=== PATIENT | female | born 1950 | race African-American/Black ===

== ENCOUNTER 2018-05-15 23:15 | Inpatient (IN) | payer BC, MEDICAID ==
[~2018-05-15] VITALS: Ht 165.1 cm; Wt 73.1 kg
[2018-05-15] MEDS ORDERED: MAGNESIUM400 M1 PO (23:24)
[2018-05-15] MEDS ORDERED: IRBESARTAN300 MG ORAL (23:24)
[2018-05-15] MEDS ORDERED: METOPROLOL TART50 M1 ORAL (23:24)
[2018-05-15] MEDS ORDERED: NORVASC5 MG ORAL (23:24)
[2018-05-15] MEDS ORDERED: NEURONTIN300 MG ORAL (23:24)
[2018-05-15] MEDS ORDERED: CLOPIDOGREL75 MG ORAL (23:24)
[2018-05-15] MEDS ORDERED: CELLCEPT200 MG/1 M PO (23:24)
[2018-05-15] MEDS ORDERED: LIPITOR80 MG ORAL (23:24)
[2018-05-15] MEDS ORDERED: COLACE100 MG ORAL (23:24)
[2018-05-15] MEDS ORDERED: ASPIRIN-LOW81 MG ORAL (23:24)
[2018-05-15] MEDS ORDERED: SENNA8.6 M2 PO (23:24)
[2018-05-15] MEDS ORDERED: SALAGEN5 M1 PO (23:24)
[2018-05-15 23:33] VITALS: BP 157/92
[2018-05-15 23:52] LABS: HEMATOCRIT 27.2 % (37.0-47.0); HEMOGLOBIN 8.8 G/DL (12.0-16.0); MEAN CORPUSCULAR VOLUME 89 FL (80-99); PLATELET COUNT 273 K/UL (150-450); RED BLOOD COUNT 3.06 M/UL (4.20-5.40); RED CELL DISTRIBUTION WIDTH 13.4 % (11.6-14.8); WHITE BLOOD COUNT 10.6 K/UL (4.8-10.8)
[2018-05-16] VITALS (7 sets, daily range): BP systolic 113–147; BP diastolic 56–89
[2018-05-16] MEDS ORDERED: Pantoprazole Inj IVP ONE
[2018-05-16 00:02] LABS: INR 1.1 (0.9-1.1)
--- NOTE | 2018-05-16 00:09 | Emergency Room Report ---
History of Present Illness General Chief Complaint: General Complaint Source: Patient, EMS Present Illness HPI Patient 67 female with witnessed syncope lasting 1-2 min. Patient had recently been noted to have bloody stools. She had prior lupus history. She is Oriental orthodox. She denies hematemesis. Patient is on Plavix and Aspirin. Allergies: Coded Allergies: CODEINE (Verified Allergy, Unknown, DISORIENTED, 06/01/11) IBUPROFEN (Verified Allergy, Unknown, DISORIENTED, 06/01/11) LEVOFLOXACIN (Verified Allergy, Unknown, DISORIENTED, 06/01/11) Patient History Past Medical History: see triage record Reviewed Nursing Documentation: PMH: Agreed; PSxH: Agreed Nursing Documentation-PMH Past Medical History: No History, Except For Hx Hypertension: Yes Hx Cerebrovascular Accident: Yes Review of Systems All Other Systems: negative except mentioned in HPI Physical Exam Vital Signs Date Time Temp Pulse Resp B/P (MAP) Pulse Ox O2 Delivery O2 Flow Rate FiO2 05/15/18 23:15 98.1 72 20 157/92 98 Room Air 98.1 Sp02 EP Interpretation: reviewed, normal General Appearance: normal inspection, well appearing, no apparent distress, alert, GCS 15, non-toxic Head: atraumatic ENT: normal ENT inspection, hearing grossly normal, normal voice Neck: normal inspection, full range of motion, supple, no bony tend Respiratory: normal inspection, lungs clear, normal breath sounds, no respiratory distress, no retraction, no wheezing Cardiovascular #1: regular rate, rhythm, no edema Gastrointestinal: normal inspection, normal bowel sounds, non tender, soft, no guarding, no hernia Genitourinary: no CVA tenderness Musculoskeletal: normal inspection, back normal, normal range of motion Neurologic: normal inspection, alert, responsive, speech normal, motor weakness - right upper extremities Psychiatric: normal inspection, judgement/insight normal, mood/affect normal Skin: normal inspection, normal color, no rash Medical Decision Making Diagnostic Impression: Primary Impression: Syncope Additional Impressions: GI bleed Platelet inhibition due to Plavix CVA, old, hemiparesis ER Course Patient presented after witnessed syncopal episode. Patient noted have recent bleeding episode. The differential diagnosis included but was not limited to ulcer, diverticulosis, aortic aneurysm, arteriovenous formation, coagulopathy, cancer among others. Because of complexity of patient's case laboratory testing and imaging studies were ordered. Laboratory testing was notable for anemia. Patient was noted to be Gnosticism. The patient was given IV Protonix. Patient started on IV fluids. Dr. Haseeb Owen was contacted for Dr. Mcdonnell due to primary physician coverage. Labs Test 05/15/18 23:43 White Blood Count 10.6 K/UL (4.8-10.8) Red Blood Count 3.06 M/UL (4.20-5.40) Hemoglobin 8.8 G/DL (12.0-16.0) Hematocrit 27.2 % (37.0-47.0) Mean Corpuscular Volume 89 FL (80-99) Mean Corpuscular Hemoglobin 28.9 PG (27.0-31.0) Mean Corpuscular Hemoglobin Concent 32.5 G/DL (32.0-36.0) Red Cell Distribution Width 13.4 % (11.6-14.8) Platelet Count 273 K/UL (150-450) Mean Platelet Volume 6.9 FL (6.5-10.1) Neutrophils (%) (Auto) % (45.0-75.0) Lymphocytes (%) (Auto) % (20.0-45.0) Monocytes (%) (Auto) % (1.0-10.0) Eosinophils (%) (Auto) % (0.0-3.0) Basophils (%) (Auto) % (0.0-2.0) Prothrombin Time 11.2 SEC (9.30-11.50) Prothromb Time International Ratio 1.1 (0.9-1.1) Activated Partial Thromboplast Time 34 SEC (23-33) Troponin I 0.001 ng/mL (0.000-0.056) EKG Diagnostic Results Rate: normal Rhythm: NSR ST Segments: no acute changes Last Vital Signs Date Time Temp Pulse Resp B/P (MAP) Pulse Ox O2 Delivery O2 Flow Rate FiO2 05/15/18 23:33 98.1 20 157/92 98 Room Air 98.1 05/15/18 23:15 72 Status: improved Disposition: ADMITTED INPATIENT Condition: Serious Referrals: Monroe Jimenez MD (PCP) Genaro Sousa MD May 16, 2018 00:09
[2018-05-16] MEDS ORDERED: Sodium Chloride 500ML 500 ML IV ONE (00:15)
[2018-05-16 00:33] LABS: ANION GAP 12 mmol/L (5-15); BLOOD UREA NITROGEN 23 mg/dL (7-18); CALCIUM 8.7 MG/DL (8.5-10.1); CARBON DIOXIDE 23 MMOL/L (21-32); CHLORIDE 105 MMOL/L (98-107); CREATININE 0.8 MG/DL (0.55-1.30); SODIUM 139 MMOL/L (136-145)
[2018-05-16 00:37] LABS: ALANINE AMINOTRANSFERASE 26 U/L (12-78); ALBUMIN 2.5 G/DL (3.4-5.0); ALBUMIN/GLOBULIN RATIO 0.4 (1.0-2.7); ALKALINE PHOSPHATASE 59 U/L (46-116); ASPARTATE AMINO TRANSFERASE 27 U/L (15-37); BILIRUBIN,TOTAL 0.2 MG/DL (0.2-1.0)
[2018-05-16] MEDS ORDERED: LIPITOR40 MG ORAL (03:13)
[2018-05-16 05:30] LABS: BASOPHILS % (AUTO) 0.3 % (0.0-2.0); EOSINOPHILS % (AUTO) 0.5 % (0.0-3.0); HEMATOCRIT 27.1 % (37.0-47.0); HEMOGLOBIN 8.6 G/DL (12.0-16.0); LYMPHOCYTES % (AUTO) 10.2 % (20.0-45.0); MEAN CORPUSCULAR VOLUME 89 FL (80-99); PLATELET COUNT 256 K/UL (150-450); RED BLOOD COUNT 3.04 M/UL (4.20-5.40); RED CELL DISTRIBUTION WIDTH 13.5 % (11.6-14.8); WHITE BLOOD COUNT 7.8 K/UL (4.8-10.8)
--- NOTE | 2018-05-16 08:16 | Consultation ---
Consult Note Consult Note Hematology Consultation DOS: 05/16/2018 NEHA MD: Owen RFC: Anemia eval HPI 67 female with hx stroke, hl, htn, witnessed syncope lasting 1-2 min. Patient had recently been noted to have bloody stools. She had prior lupus history. She is Taoist. She denies hematemesis. Patient is on Plavix and Aspirin. Apparently was seen before in 2010, with a kidney mass but do not have prior imaging or notes in the emr. Anemia panel reviewed nothing yet has been ordered. Heme service consulted. Allergies: CODEINE (Verified Allergy, Unknown, DISORIENTED, 06/01/11) IBUPROFEN (Verified Allergy, Unknown, DISORIENTED, 06/01/11) LEVOFLOXACIN (Verified Allergy, Unknown, DISORIENTED, 06/01/11) Patient History Past Medical History: see triage record Reviewed Nursing Documentation: PMH: Agreed; PSxH: Agreed Past Medical History: No History, Except For Hx Hypertension: Yes Hx Cerebrovascular Accident: Yes ER ROS - General Review of Systems All Other Systems: negative except mentioned in HPI 12 point ros otherwise negative ER Physical Exam - General Physical Exam Last 24 Hour Vital Signs Date Time Temp Pulse Resp B/P (MAP) Pulse Ox O2 Delivery O2 Flow Rate FiO2 05/16/18 04:00 97.7 83 20 123/81 (95) 100 97.7 05/16/18 04:00 Room Air 05/16/18 04:00 82 05/16/18 02:00 Room Air 05/16/18 01:23 83 05/16/18 01:20 98.5 84 20 147/73 (97) 98 98.5 05/16/18 01:05 98.0 68 18 141/89 98 Room Air 98.0 05/16/18 01:05 97.9 63 18 133/67 100 05/15/18 23:33 98.1 20 157/92 98 Room Air 98.1 05/15/18 23:15 98.1 72 20 157/92 98 Room Air 98.1 Sp02 EP Interpretation: reviewed, normal General Appearance: normal inspection, well appearing, nad Head: atraumatic ENT: normal ENT inspection, hearing grossly normal, normal voice Neck: normal inspection, full range of motion, supple, no bony tend Respiratory: normal inspection, lungs clear Cardiovascular: regular rate, rhythm, no edema Gastrointestinal: normal inspection, normal bowel sounds Genitourinary: no CVA tenderness Musculoskeletal: normal inspection, back normal, normal range of motion Neurologic: normal inspection, motor weakness - right upper extremities Psychiatric: normal inspection Laboratory Tests Test 05/15/18 23:43 05/16/18 05:04 White Blood Count 10.6 K/UL (4.8-10.8) 7.8 K/UL (4.8-10.8) Red Blood Count 3.06 M/UL (4.20-5.40) L 3.04 M/UL (4.20-5.40) L Hemoglobin 8.8 G/DL (12.0-16.0) L 8.6 G/DL (12.0-16.0) L Hematocrit 27.2 % (37.0-47.0) L 27.1 % (37.0-47.0) L Mean Corpuscular Volume 89 FL (80-99) 89 FL (80-99) Mean Corpuscular Hemoglobin 28.9 PG (27.0-31.0) 28.4 PG (27.0-31.0) Mean Corpuscular Hemoglobin Concent 32.5 G/DL (32.0-36.0) 31.8 G/DL (32.0-36.0) L Red Cell Distribution Width 13.4 % (11.6-14.8) 13.5 % (11.6-14.8) Platelet Count 273 K/UL (150-450) 256 K/UL (150-450) Mean Platelet Volume 6.9 FL (6.5-10.1) 6.3 FL (6.5-10.1) L Neutrophils (%) (Auto) % (45.0-75.0) 83.0 % (45.0-75.0) H Lymphocytes (%) (Auto) % (20.0-45.0) 10.2 % (20.0-45.0) L Monocytes (%) (Auto) % (1.0-10.0) 6.0 % (1.0-10.0) Eosinophils (%) (Auto) % (0.0-3.0) 0.5 % (0.0-3.0) Basophils (%) (Auto) % (0.0-2.0) 0.3 % (0.0-2.0) Prothrombin Time 11.2 SEC (9.30-11.50) Prothromb Time International Ratio 1.1 (0.9-1.1) Activated Partial Thromboplast Time 34 SEC (23-33) H Sodium Level 139 MMOL/L (136-145) Potassium Level 4.0 MMOL/L (3.5-5.1) Chloride Level 105 MMOL/L (98-107) Carbon Dioxide Level 23 MMOL/L (21-32) Anion Gap 12 mmol/L (5-15) Blood Urea Nitrogen 23 mg/dL (7-18) H Creatinine 0.8 MG/DL (0.55-1.30) Estimat Glomerular Filtration Rate > 60 mL/min (>60) Glucose Level 131 MG/DL (74-106) H Calcium Level 8.7 MG/DL (8.5-10.1) Total Bilirubin 0.2 MG/DL (0.2-1.0) Aspartate Amino Transf (AST/SGOT) 27 U/L (15-37) Alanine Aminotransferase (ALT/SGPT) 26 U/L (12-78) Alkaline Phosphatase 59 U/L (46-116) Troponin I 0.001 ng/mL (0.000-0.056) Total Protein 8.1 G/DL (6.4-8.2) Albumin 2.5 G/DL (3.4-5.0) L Globulin 5.6 g/dL Albumin/Globulin Ratio 0.4 (1.0-2.7) L Assessment and Recs: # Anemia etiology yet unknown, normocytic, no evidence of hemolysis noted --> Sabianism, therefore will not accept transfusions --> have ordered for tsh, ferritin, tibc, esr, crp, retic count, consider further w/u as needed --> monitor if any fluids are given, hgb may decrease due to hemodilutional status --> closely monitor for improvement in next several days --> if hgb downtrends, consider to hold off on asa/palvix as will decrease function of platelets # Anemia of gi bleed - w/u as needed, consider occult blood --> gi eval if continues to persist --> protonix has been started # Syncope is related most likely due to anemia versus cardiac cause v others # CVA, old, hemiparesis Greatly appreciate consultation! Buddy Hernandez MD May 16, 2018 08:16
[2018-05-16] MEDS ORDERED: Irbesartan 150mg tablet ORAL SCH (09:00)
[2018-05-16] MEDS ORDERED: Mycophenolate 250mg cap ORAL SCH (09:00)
[2018-05-16] MEDS ORDERED: Metoprolol Tartrate 50mg tab ORAL SCH (09:00)
[2018-05-16 10:06] LABS: LACTATE DEHYDROGENASE 181 U/L (81-234)
[2018-05-16 10:33] LABS: % IRON SATURATION 30 % (15-50); IRON 41 ug/dL (50-175); TOTAL IRON BINDING CAPACITY 135 ug/dL (250-450)
[2018-05-16 10:37] LABS: FERRITIN 1283 NG/ML (8-388)
--- NOTE | 2018-05-16 10:39 | Diagnostic Imaging Report ---
Indication: Altered level of consciousness Technique: Contiguous 5 mm thick transaxial imaging of the head obtained in a Siemens Sensation [address] scanner. Soft tissue and bone windows generated. Automatic Exposure Control was utilized. Total Dose length Product (DLP): 1393.[address] Dose Index Volume (CTDIvol): 70.38 mGy Comparison: none Findings: Small cystic foci demonstrated within the left osullivan radiata, right basal ganglia and left midbrain bilateral thalami. Findings consistent with old lacunar infarcts. There is mild prominence of the ventricles, basal cisterns, and cerebral sulci consistent with atrophy. Mild, nonspecific, white matter hypoattenuation is noted throughout the brain consistent with chronic small vessel disease. There is no midline shift, edema, acute hemorrhage, mass effect, or abnormal extra-axial fluid collections. Bones and extra osseous soft tissues are unremarkable. Impression: No acute intracranial bleed, mass effect or edema. Multiple old lacunar infarcts Mild atrophy of the brain. Nonspecific white matter hypoattenuation probably due to chronic small vessel disease. The CT scanner at [facility] is accredited by the [employer] and the scans are performed using dose optimization techniques as appropriate to a performed exam including Automatic Exposure control.
--- NOTE | 2018-05-16 12:00 | History and Physical Report ---
DATE OF ADMISSION: 05/16/2018 REASON FOR ADMISSION: Bright red blood through rectum. HISTORY OF PRESENT ILLNESS: The patient is a 67-year-old female, who presented to the emergency room after having bright red bloody stool. She was not feeling well and got very lightheaded and almost passed out. She is a Pentecostalism. She denies any hemoptysis. She had been on aspirin and Plavix. She denies any shortness of breath, nausea, vomiting, or diarrhea. ALLERGIES: Codeine, ibuprofen. PAST MEDICAL HISTORY: 1. Hypertension. 2. Hyperlipidemia. 3. Neuropathy. 4. Rheumatological disease. PAST SURGICAL HISTORY: Noncontributory. FAMILY HISTORY: Positive for hypertension. REVIEW OF SYSTEMS: NEUROLOGIC: The patient was lightheaded and almost passed out. CARDIOVASCULAR: No chest pain, palpitations, or angina. PULMONARY: No difficulty breathing, productive cough, or sputum. GASTROINTESTINAL/GENITOURINARY: No changes in urinary or bowel habits. No nausea, vomiting, or diarrhea. ENDOCRINOLOGY: No night sweats, fevers, or chills. LABORATORY DATA: Laboratories dated May 15, 2018, sodium 139, potassium 4.2, creatinine 0.8. Hemoglobin 8.8, platelet count 273, white cell count 10.6. PHYSICAL EXAMINATION: VITAL SIGNS: Blood pressure 120/70, respiratory rate 20, pulse 88, temperature 98.2, and 100% oxygen saturation on room air. GENERAL: The patient awake, alert, not otherwise in distress. HEENT: Extraocular muscles intact. No lymphadenopathy noted. CARDIOVASCULAR: S1, S2. No rubs or gallops. PULMONARY: Clear to auscultation bilaterally. No rales, rhonchi or wheezes. ABDOMEN: Nondistended and nontender. EXTREMITIES: No edema noted. ASSESSMENT AND PLAN: 1. Bright red blood through rectum. At this time, aspirin and Plavix were temporarily held. Awaiting GI evaluation and further recommendations. 2. Anemia. Hemoglobin 8.6. Aspirin and Plavix have been held. Hematology is currently evaluating the patient to determine whether or not to continue aspirin and Plavix. 3. Presyncopal episode with lightheadedness while being on anticoagulation at this time. We will order CT of the head to rule out any subdural bleed. 4. DVT prophylaxis with SCDs. 5. Hypertension, stable. Adjust medication as deemed appropriate. Haseeb Owen MD DR: EZRA JOB#: [id number] CC: [email or web address]
--- NOTE | 2018-05-16 14:19 | GI Initial Consult Note ---
History of Present Illness General Date patient seen: May 16, 2018 Time patient seen: 14:18 Reason for Hospitalization: General Complaint Referring physician: EMMANUEL GODOY Reason for Consultation: GI BLEED Present Illness HPI Patient 67 female with witnessed syncope lasting 1-2 min. Patient had recently been noted to have bloody stools. She had prior lupus history. She is Anabaptism. She denies hematemesis. Patient is on Plavix and Aspirin. GI consulted for GI bleed. Pt seen, awake A&Ox4 NAD had c/o of dark red bloody stools x1 day. States it has subsided/resolved over night. Has history of CVA , has been on plavix and aspirin. Per patient, states she had endoscopy/ colonoscopy this year at [facility], but unsure of the findings. Labs reviewed show anemia. Home Meds Reported Medications Atorvastatin Calcium* (LIPITOR*) 40 Mg Tablet, 40 MG ORAL DAILY, TAB 05/16/18 Sennosides (SENNA) 8.6 Mg Tablet, 8.6 MG PO HS, TAB 05/15/18 Pilocarpine HCl (Salagen) 5 Mg Tablet, 5 MG PO TID, TAB 05/15/18 Metoprolol Tartrate* (METOPROLOL TARTRATE*) 50 Mg Tablet, 50 MG ORAL EVERY 12 HOURS, TAB 05/15/18 Magnesium Oxide (MAGNESIUM) 400 Mg Capsule, 400 MG PO BID, CAP 05/15/18 Irbesartan (IRBESARTAN) 300 Mg Tablet, 300 MG ORAL DAILY, TAB 05/15/18 Gabapentin (Neurontin) 300 Mg Capsule, 300 MG ORAL FOUR TIMES A DAY, CAP 0 Refills 05/15/18 Docusate Sodium* (COLACE*) 100 Mg Capsule, 100 MG ORAL TWICE A DAY, CAP 05/15/18 Clopidogrel* (CLOPIDOGREL*) 75 Mg Tablet, 75 MG ORAL DAILY, TAB 05/15/18 Mycophenolate Mofetil (CELLCEPT) 200 Mg/1 Ml Susp.recon, 250 MG PO BID, ML 05/15/18 Aspirin (Aspirin EC) 81 Mg Tablet.dr, 81 MG ORAL DAILY, TAB 05/15/18 Amlodipine Besylate (Norvasc) 5 Mg Tablet, 5 MG ORAL DAILY, TAB 05/15/18 Med list reviewed/reconciled: Yes Allergies: Coded Allergies: CODEINE (Verified Allergy, Unknown, DISORIENTED, 06/01/11) IBUPROFEN (Verified Allergy, Unknown, DISORIENTED, 06/01/11) LEVOFLOXACIN (Verified Allergy, Unknown, DISORIENTED, 06/01/11) Patient History History Provided By: Patient, Medical Record PMH Narrative Past Medical History: see triage record Reviewed Nursing Documentation: PMH: Agreed; PSxH: Agreed Nursing Documentation-PMH Past Medical History: No History, Except For Hx Hypertension: Yes Hx Cerebrovascular Accident: Yes Social History: Denies: smoking, alcohol use, drug use, other Review of Systems All Other Systems: negative except mentioned in HPI Physical Exam Vital Signs Date Time Temp Pulse Resp B/P (MAP) Pulse Ox O2 Delivery O2 Flow Rate FiO2 05/15/18 23:15 98.1 72 20 157/92 98 Room Air 98.1 Sp02 EP Interpretation: reviewed, normal Labs Laboratory Tests Test 05/15/18 23:43 05/16/18 05:04 05/16/18 08:50 White Blood Count 10.6 K/UL (4.8-10.8) 7.8 K/UL (4.8-10.8) Red Blood Count 3.06 M/UL (4.20-5.40) L 3.04 M/UL (4.20-5.40) L Hemoglobin 8.8 G/DL (12.0-16.0) L 8.6 G/DL (12.0-16.0) L Hematocrit 27.2 % (37.0-47.0) L 27.1 % (37.0-47.0) L Mean Corpuscular Volume 89 FL (80-99) 89 FL (80-99) Mean Corpuscular Hemoglobin 28.9 PG (27.0-31.0) 28.4 PG (27.0-31.0) Mean Corpuscular Hemoglobin Concent 32.5 G/DL (32.0-36.0) 31.8 G/DL (32.0-36.0) L Red Cell Distribution Width 13.4 % (11.6-14.8) 13.5 % (11.6-14.8) Platelet Count 273 K/UL (150-450) 256 K/UL (150-450) Mean Platelet Volume 6.9 FL (6.5-10.1) 6.3 FL (6.5-10.1) L Neutrophils (%) (Auto) % (45.0-75.0) 83.0 % (45.0-75.0) H Lymphocytes (%) (Auto) % (20.0-45.0) 10.2 % (20.0-45.0) L Monocytes (%) (Auto) % (1.0-10.0) 6.0 % (1.0-10.0) Eosinophils (%) (Auto) % (0.0-3.0) 0.5 % (0.0-3.0) Basophils (%) (Auto) % (0.0-2.0) 0.3 % (0.0-2.0) Prothrombin Time 11.2 SEC (9.30-11.50) Prothromb Time International Ratio 1.1 (0.9-1.1) Activated Partial Thromboplast Time 34 SEC (23-33) H Sodium Level 139 MMOL/L (136-145) Potassium Level 4.0 MMOL/L (3.5-5.1) Chloride Level 105 MMOL/L (98-107) Carbon Dioxide Level 23 MMOL/L (21-32) Anion Gap 12 mmol/L (5-15) Blood Urea Nitrogen 23 mg/dL (7-18) H Creatinine 0.8 MG/DL (0.55-1.30) Estimat Glomerular Filtration Rate > 60 mL/min (>60) Glucose Level 131 MG/DL (74-106) H Calcium Level 8.7 MG/DL (8.5-10.1) Total Bilirubin 0.2 MG/DL (0.2-1.0) Aspartate Amino Transf (AST/SGOT) 27 U/L (15-37) Alanine Aminotransferase (ALT/SGPT) 26 U/L (12-78) Alkaline Phosphatase 59 U/L (46-116) Troponin I 0.001 ng/mL (0.000-0.056) Total Protein 8.1 G/DL (6.4-8.2) Albumin 2.5 G/DL (3.4-5.0) L Globulin 5.6 g/dL Albumin/Globulin Ratio 0.4 (1.0-2.7) L Differential Total Cells Counted 100 Neutrophils % (Manual) 84 % (45-75) H Lymphocytes % (Manual) 9 % (20-45) L Monocytes % (Manual) 5 % (1-10) Eosinophils % (Manual) 1 % (0-3) Basophils % (Manual) 1 % (0-2) Band Neutrophils 0 % (0-8) Platelet Estimate Adequate Platelet Morphology Normal Hypochromasia 2+ Anisocytosis 1+ Reticulocyte Count 0.2 % (0.0-2.0) Fibrinogen 437 mg/dL (200-400) H Iron Level 41 ug/dL (50-175) L Total Iron Binding Capacity 135 ug/dL (250-450) L Percent Iron Saturation 30 % (15-50) Unsaturated Iron Binding 94 ug/dL (112-346) L Ferritin 1283 NG/ML (8-388) H Lactate Dehydrogenase 181 U/L (81-234) Folate 25.2 NG/ML (8.6-58.9) Thyroid Stimulating Hormone (TSH) 1.313 uiU/mL (0.358-3.740) General Appearance: well appearing, no apparent distress, alert Head: normocephalic EENT: PERRL/EOMI, normal ENT inspection Neck: supple Respiratory: normal breath sounds, no respiratory distress Cardiovascular: normal rate Gastrointestinal: normal inspection, non tender, soft, normal bowel sounds, non -distended Rectal: deferred Genitourinary: no CVA tenderness Musculoskeletal: normal inspection, back normal Neurologic: normal inspection, alert, oriented x3, responsive Psychiatric: normal inspection, judgement/insight normal, memory normal Skin: normal inspection, normal color, no rash, warm/dry, palpation normal, well hydrated Lymphatic: normal inspection, no adenopathy Current Medications Current Medications Medications (Trade) Dose Ordered Sig/Jose Roberto Route PRN Reason Start Time Stop Time Status Last Admin Dose Admin Acetaminophen (Tylenol) 650 mg Q4H PRN ORAL Mild Pain (Pain Scale 1-3) 05/16/18 10:00 06/15/18 09:59 Amlodipine Besylate (Norvasc) 5 mg DAILY ORAL 05/17/18 09:00 06/15/18 08:59 Atorvastatin Calcium (Lipitor) 40 mg BEDTIME ORAL 05/16/18 21:00 06/15/18 20:59 Bisacodyl (Dulcolax) 10 mg ONCE ONCE ORAL 05/16/18 16:00 05/16/18 16:01 UNV Dextrose (Dextrose 50%) 25 ml Q30M PRN IV Hypoglycemia 05/16/18 10:00 06/15/18 00:29 Dextrose (Dextrose 50%) 50 ml Q30M PRN IV Hypoglycemia 05/16/18 10:00 06/15/18 00:29 Famotidine (Pepcid) 40 mg DAILY ORAL 05/17/18 09:00 06/15/18 08:59 Gabapentin (Neurontin) 300 mg THREE TIMES A DAY ORAL 05/16/18 13:00 06/15/18 12:59 05/16/18 12:23 Irbesartan (Avapro) 150 mg BID ORAL 05/16/18 18:00 06/15/18 08:59 Magnesium Citrate (Citrate Of Magnesia) 300 ml ONCE ONCE ORAL 05/16/18 16:00 05/16/18 16:01 UNV Metoprolol Tartrate (Lopressor) 50 mg Q12HR ORAL 05/16/18 21:00 06/15/18 08:59 Mycophenolate Mofetil (Cellcept) 250 mg TWICE A DAY ORAL 05/16/18 18:00 06/15/18 08:59 Ondansetron HCl (Zofran) 4 mg Q6H PRN IVP Nausea & Vomiting 05/16/18 10:00 06/15/18 09:59 Polyethylene Glycol (Miralax) 238 gm ONCE ONCE ORAL 05/16/18 16:00 05/16/18 16:01 UNV Sodium Chloride 1,000 ml @ 75 mls/hr [id number] 05/16/18 09:45 06/15/18 01:29 05/16/18 10:02 Sodium Phosphate (Fleet's Sodium Phosl Enema) 133 ml ONCE ONCE RECTAL 05/16/18 23:00 05/16/18 23:01 UNV GI: Plan Problems: (1) Anemia (2) CVA, old, hemiparesis (3) Platelet inhibition due to Plavix (4) GI bleed (5) Syncope Plan EGD/colonoscopy scheduled for tomorrow. - CLD, NPO @ [facility]. - hold all blood thinners anemia work up OB stool r/o GI bleed monitor H&H, prn transfusions bowel regime ppi fu labs will follow with additional recs post procedure OT/PT/ST Discussed with Dr. Sepulveda. Thank you for this patient referral, we will follow. The patient was seen and examined at bedside and all new and available data was reviewed in the patients chart. I agree with the above findings, impression and plan. (Patient seen earlier today. Signature stamp does not reflect patient encounter time.). - MD Shira HeadD[facility] [employer]LECT[employer] MAINTENANCE MECH[employer]IC May 16, 2018 14:19
[2018-05-16] MEDS ORDERED: Magnesium Citrate Liq Btl ORAL SCH (16:00)
[2018-05-16] MEDS ORDERED: Bisacodyl EC 5mg tab ORAL SCH (16:00)
[2018-05-16] MEDS ORDERED: Polyethylene Glycol 238gm bottle ORAL SCH (16:00)
[2018-05-16] MEDS: Irbesartan 150mg tablet ORAL SCH (17:06)
[2018-05-16] MEDS: Mycophenolate 250mg cap ORAL SCH (17:06)
--- NOTE | 2018-05-16 19:35 | Cardiology Report ---
APPROVED REPORT EKG Measurement Heart [id number] NM [id number] Normal sinus rhythm Nonspecific T wave abnormality Abnormal ECG
[2018-05-16] MEDS ORDERED: Atorvastatin 20mg tab ORAL SCH ×2 (21:00)
[2018-05-16] MEDS: Metoprolol Tartrate 50mg tab ORAL SCH (21:29)
[2018-05-16] MEDS ORDERED: Fleet's Enema 133ml RECTAL ONE (23:00)
[2018-05-17] VITALS (10 sets, daily range): BP systolic 132–153; BP diastolic 60–77
[2018-05-17 07:28] LABS: ANION GAP 7 mmol/L (5-15); BLOOD UREA NITROGEN 8 mg/dL (7-18); CALCIUM 8.6 MG/DL (8.5-10.1); CARBON DIOXIDE 27 MMOL/L (21-32); CHLORIDE 108 MMOL/L (98-107); CREATININE 0.6 MG/DL (0.55-1.30); POTASSIUM 3.4 MMOL/L (3.5-5.1); SODIUM 142 MMOL/L (136-145)
[2018-05-17 07:38] LABS: BASOPHILS % (AUTO) 0.4 % (0.0-2.0); EOSINOPHILS % (AUTO) 3.4 % (0.0-3.0); HEMATOCRIT 27.5 % (37.0-47.0); HEMOGLOBIN 8.7 G/DL (12.0-16.0); LYMPHOCYTES % (AUTO) 12.4 % (20.0-45.0); MEAN CORPUSCULAR VOLUME 89 FL (80-99); MONOCYTES % (AUTO) 8.5 % (1.0-10.0); NEUTROPHILS % (AUTO) 75.2 % (45.0-75.0); PLATELET COUNT 271 K/UL (150-450); RED BLOOD COUNT 3.08 M/UL (4.20-5.40); RED CELL DISTRIBUTION WIDTH 13.5 % (11.6-14.8); WHITE BLOOD COUNT 5.6 K/UL (4.8-10.8)
[2018-05-17 07:52] LABS: INR 1.1 (0.9-1.1)
[2018-05-17] MEDS: Irbesartan 150mg tablet ORAL SCH ×2 (08:12→17:43)
[2018-05-17] MEDS: Mycophenolate 250mg cap ORAL SCH ×2 (08:13→17:43)
[2018-05-17] MEDS: Metoprolol Tartrate 50mg tab ORAL SCH (08:13)
[2018-05-17] MEDS ORDERED: fentaNYL 100 mcg/2 mL IV ONE (10:09)
[2018-05-17] MEDS ORDERED: Midazolam 2mg/2ml Inj ONE (10:09)
--- NOTE | 2018-05-17 10:23 | Nephrology Progress Note ---
Assessment/Plan Assessment/Plan A/P 1) GI Bleed/Hematochezia - Hgb stable. ASA and Plavix on hold until cleared by GI - EGD and Colonoscopy today - Anemia w/u per Heme - plan on DC today if cleared by GI 2) Presyncopal Episode with episode of Hematochezia- likely vasovagal - CT Head negative 3) HTN- stable 4) DVT prophylaxsis with ambulation and SCDs Subjective Date patient seen: May 17, 2018 Time patient seen: 10:21 ROS Limited/Unobtainable: No Allergies: Coded Allergies: CODEINE (Verified Allergy, Unknown, DISORIENTED, 06/01/11) IBUPROFEN (Verified Allergy, Unknown, DISORIENTED, 06/01/11) LEVOFLOXACIN (Verified Allergy, Unknown, DISORIENTED, 06/01/11) All Systems: reviewed and negative except above Subjective Patient feeling well. EGD/Colonoscopy today Objective Last 24 Hour Vital Signs Date Time Temp Pulse Resp B/P (MAP) Pulse Ox O2 Delivery O2 Flow Rate FiO2 05/17/18 08:16 67 134/71 05/17/18 08:13 67 134/71 05/17/18 08:12 134/71 05/17/18 08:00 68 05/17/18 08:00 98.1 67 20 134/71 (92) 96 98.1 05/17/18 04:00 97.3 69 20 132/72 (92) 97 97.3 05/17/18 04:00 68 05/17/18 00:00 97.5 71 20 153/75 (101) 99 97.5 05/17/18 00:00 71 05/16/18 21:29 74 142/74 05/16/18 21:00 Room Air 05/16/18 20:00 98.1 74 20 142/74 (96) 98 98.1 05/16/18 20:00 77 05/16/18 17:06 138/76 05/16/18 16:00 75 05/16/18 16:00 98.1 75 18 138/76 (96) 99 98.1 05/16/18 12:00 98.3 78 18 113/56 (75) 98 98.3 05/16/18 12:00 75 Intake and Output 05/16/18 05/17/18 19:00 07:00 Intake Total 1475 ml 930 ml Output Total 300 ml 3 ml Balance 1175 ml 927 ml Intake Oral 800 ml 120 ml IV Total 675 ml 810 ml Output Urine Total 300 ml Stool Total 3 ml # Voids 5 # Bowel Movements 5 Laboratory Tests 05/16/18 19:30: Stool Occult Blood [Pending] 05/17/18 06:35: White Blood Count 5.6, Red Blood Count 3.08L, Hemoglobin 8.7L, Hematocrit 27.5L , Mean Corpuscular Volume 89, Mean Corpuscular Hemoglobin 28.4, Mean Corpuscular Hemoglobin Concent 31.9L, Red Cell Distribution Width 13.5, Platelet Count 271, Mean Platelet Volume 6.5, Neutrophils (%) (Auto) 75.2H, Lymphocytes (%) (Auto) 12.4L, Monocytes (%) (Auto) 8.5, Eosinophils (%) (Auto) 3.4H, Basophils (%) (Auto) 0.4, Prothrombin Time 11.3, Prothromb Time International Ratio 1.1, Activated Partial Thromboplast Time 31, Sodium Level 142, Potassium Level 3.4L, Chloride Level 108H, Carbon Dioxide Level 27, Anion Gap 7, Blood Urea Nitrogen 8, Creatinine 0.6, Estimat Glomerular Filtration Rate > 60, Glucose Level 79, Calcium Level 8.6 Height (Feet): 5 Height (Inches): 5.00 Weight (Pounds): 161 General Appearance: WD/WN, no apparent distress EENT: normal ENT inspection Neck: normal alignment, supple Cardiovascular: normal rate, regular rhythm Respiratory/Chest: lungs clear, normal breath sounds Abdomen: non tender, soft Edema: no edema noted Arm (L), no edema noted Arm (R), no edema noted Leg (L), no edema noted Leg (R), no edema noted Pedal (L), no edema noted Pedal (R), no edema noted Generalized Haseeb Owen MD May 17, 2018 10:23
[2018-05-17] MEDS ORDERED: NS 500ML IVPB ONE (10:35)
--- NOTE | 2018-05-17 10:37 | Pre-Procedure Note/Attestation ---
Pre-Procedure Note/Attestation Complete Prior to Procedure Planned Procedure: not applicable Procedure Narrative: esophagogastroduodenoscopy and colonoscopy Indications for Procedure Pre-Operative Diagnosis: gib Attestation I attest that I discussed the nature of the procedure; its benefits; risks and complications; and alternatives (and the risks and benefits of such alternatives ), prior to the procedure, with the patient (or the patient's legal registration representative). I attest that, if there was a reasonable possibility of needing a blood transfusion, the patient (or the patient's legal registration representative) was given the [facility] standardized written summary, pursuant to the Justin Mykel Blood Safety Act ([place] Health and Safety Code # 1645, as amended). I attest that I re-evaluated the patient just prior to the surgery and that there has been no change in the patient's H&P, except as documented below: Calixto Sepulveda MD May 17, 2018 10:37
--- NOTE | 2018-05-17 10:40 | Anethesia Preoperative Eval ---
Anesthesia Pre-op PMH/ROS General Date of Evaluation: May 17, 2018 Time of Evaluation: 10:27 Anesthesiologist: Danny ASA Score: ASA 3 Mallampati Score Class I : Soft palate, uvula, fauces, pillars visible Class II: Soft palate, uvula, fauces visible Class III: Soft palate, base of uvula visible Class IV: Only hard plate visible Mallampati Classification: Class II Surgeon: Coco Diagnosis: Anemia Surgical Procedure: EGD Colonoscopy Anesthesia History: none Family History: no anesthesia problems Allergies: Coded Allergies: CODEINE (Verified Allergy, Unknown, DISORIENTED, 06/01/11) IBUPROFEN (Verified Allergy, Unknown, DISORIENTED, 06/01/11) LEVOFLOXACIN (Verified Allergy, Unknown, DISORIENTED, 06/01/11) Patient NPO?: Yes Past Medical History Cardiovascular: Reports: HTN; Denies: CAD, FL, valve dz, arrhythmia, other Pulmonary: Denies: asthma, COPD, MATEUSZ, other Gastrointestinal/Genitourinary: Reports: GERD, other - GI bleed; Denies: CRI, ESRD Neurologic/Psychiatric: Reports: CVA; Denies: dementia, depression/anxiety, TIA, other Endocrine: Reports: DM; Denies: hypothyroidism, steroids, other HEENT: Denies: cataract (L), cataract (R), glaucoma, MECHOOPDA (L), MECHOOPDA (R), other Hematology/Immune: Reports: anemia, other - H/o lupus; Denies: DVT, bleeding disorder Musculoskeletal/Integumentary: Denies: OA, RA, DJD, DDD, edema, other PMH Narrative: admitted for syncopal episode PSxH Narrative: see H@P Anesthesia Pre-op Phys. Exam Physician Exam Last Vital Signs Date Time Temp Pulse Resp B/P (MAP) Pulse Ox O2 Delivery O2 Flow Rate FiO2 05/17/18 08:16 67 134/71 05/17/18 08:00 98.1 20 96 98.1 05/16/18 21:00 Room Air Constitutional: NAD Neurologic: CN 2-12 intact Cardiovascular: RRR Respiratory: CTA Gastrointestinal: S/NT/ND Airway Exam Mallampati Score: Class II MO: limited Neck: weak ROM: limited Teeth: missing Dentures: no upper, no lower Anesthesia Pre-op A/P Labs Hematology Test 05/17/18 06:35 White Blood Count 5.6 K/UL (4.8-10.8) Red Blood Count 3.08 M/UL (4.20-5.40) L Hemoglobin 8.7 G/DL (12.0-16.0) L Hematocrit 27.5 % (37.0-47.0) L Mean Corpuscular Volume 89 FL (80-99) Mean Corpuscular Hemoglobin 28.4 PG (27.0-31.0) Mean Corpuscular Hemoglobin Concent 31.9 G/DL (32.0-36.0) L Red Cell Distribution Width 13.5 % (11.6-14.8) Platelet Count 271 K/UL (150-450) Mean Platelet Volume 6.5 FL (6.5-10.1) Neutrophils (%) (Auto) 75.2 % (45.0-75.0) H Lymphocytes (%) (Auto) 12.4 % (20.0-45.0) L Monocytes (%) (Auto) 8.5 % (1.0-10.0) Eosinophils (%) (Auto) 3.4 % (0.0-3.0) H Basophils (%) (Auto) 0.4 % (0.0-2.0) Coagulation Test 05/17/18 06:35 Prothrombin Time 11.3 SEC (9.30-11.50) Prothromb Time International Ratio 1.1 (0.9-1.1) Activated Partial Thromboplast Time 31 SEC (23-33) Chemistry Test 05/17/18 06:35 Sodium Level 142 MMOL/L (136-145) Potassium Level 3.4 MMOL/L (3.5-5.1) L Chloride Level 108 MMOL/L (98-107) H Carbon Dioxide Level 27 MMOL/L (21-32) Anion Gap 7 mmol/L (5-15) Blood Urea Nitrogen 8 mg/dL (7-18) Creatinine 0.6 MG/DL (0.55-1.30) Estimat Glomerular Filtration Rate > 60 mL/min (>60) Glucose Level 79 MG/DL (74-106) Calcium Level 8.6 MG/DL (8.5-10.1) Risk Assessment & Plan Assessment: ASA 3 Plan: mac Status Change Before Surgery: No Pre-Antibiotics Drug: none Vakulenko,Manny MD May 17, 2018 10:40
[2018-05-17] MEDS ORDERED: DiphenhydrAMINE 50mg/ml Inj IVP PRN (11:00)
--- NOTE | 2018-05-17 11:11 | Endoscopy Procedure Note ---
Endoscopy Procedure Note General Indication for Procedure: gib Procedures Performed: EGD, colonoscopy Operative Findings/Diagnosis: gastritis, diverticulosis Specimen: yes Pt Tolerated Procedure Well: Yes Estimated Blood Loss: none Anesthesia Anesthesiologist: marivel Anesthesia: MAC Inserted Devices Implant(s) used?: No Quality Quality of Bowel Preparation: Fair Did scope reach the cecum?: Yes Was there any complications?: No GI Core Measures 50 yrs or older w/o bx or poly: Not Applicable 10yrs. F/U not recommended: Not Applicable Calixto Sepulveda MD May 17, 2018 11:11
--- NOTE | 2018-05-17 11:22 | Immediate Post-Op Evaluation ---
Immediate Post-Op Evalulation Immediate Post-Op Evalulation Procedure: EGD Colonoscopy Date of Evaluation: May 17, 2018 Time of Evaluation: 11:21 IV Fluids: 500 Blood Products: none Estimated Blood Loss: min Urinary Output: none Blood Pressure Systolic: 152 Blood Pressure Diastolic: 76 Pulse Rate: 62 Respiratory Rate: 20 O2 Sat by Pulse Oximetry: 99 Temperature (Fahrenheit): 97.6 Pain Score (1-10): 1 Nausea: No Vomiting: No Complications none Patient Status: awake, patent, none Hydration Status: adequate Manny Carvajal MD May 17, 2018 11:22
--- NOTE | 2018-05-17 11:24 | 48 Hour Post Anesthesia Eval ---
Post Anesthesia Evaluation Procedure: EGD Colonoscopy Date of Evaluation: May 17, 2018 Time of Evaluation: 12:05 Blood Pressure Systolic: 148 0: 74 Pulse Rate: 68 Respiratory Rate: 20 Temperature (Fahrenheit): 97.6 O2 Sat by Pulse Oximetry: 98 Airway: patent Nausea: No Vomiting: No Pain Intensity: 2 Hydration Status: adequate Cardiopulmonary Status: stable Mental Status/LOC: patient returned to baseline Follow-up Care/Observations: n/a Post-Anesthesia Complications: none Follow-up care needed: N/A Manny Carvajal MD May 17, 2018 11:24
--- NOTE | 2018-05-17 13:00 | Procedure Note ---
DATE OF PROCEDURE: 05/17/2018 SURGEON: Calixto Sepulveda M.D. ANESTHESIOLOGIST: Manny Carvajal M.D. REFERRING PHYSICIAN: Monroe Jimenez M.D. PROCEDURE: Upper endoscopy with biopsy and colonoscopy with hemostasis. ANESTHESIA: Per Manny Carvajal M.D. INSTRUMENT: Olympus adult flexible upper endoscope and colonoscope. INDICATION: GI bleeding. The procedure, risks, benefits, and possible consequences, including hemorrhage, aspiration, perforation and infection, and alternative treatments, were explained to the patient/legal guardian by Dr. Calixto Sepulveda and the patient/legal guardian understood and accepted these risks. DESCRIPTION OF PROCEDURE: After informed consent was obtained and the patient was adequately sedated, Olympus upper endoscope was advanced from the mouth to the second portion of duodenum and retroflexion was performed in the stomach. The patient has a small hiatal hernia. The patient had severe atrophic gastritis. Random biopsy from antrum and body was obtained to rule out H. pylori infection. At this time, the upper endoscope was retrieved. The patient was turned over for colonoscopy. First, rectal exam was performed which was normal. Then, the scope was advanced from the rectum into the cecum documented by the appendix orifice, ileocecal valve, and right upper quadrant palpation. Quality of prep was fair. The patient had significant diverticulosis in the left colon with one blood vessel was seen in the sigmoid colon at about 30 cm from the anal verge, most probably the source of bleeding. Two Hemoclips were used to close this vessel. No complications. Retroflexion of rectum showed evidence of internal hemorrhoids. SUMMARY OF FINDINGS: 1. Severe atrophic gastritis. 2. Small hiatal hernia. 3. Significant diverticulosis. 4. One bleeding vessel in the sigmoid, status post hemostasis. RECOMMENDATIONS: Resume diet. Follow labs. Follow biopsy results. I want to thank Dr. Monroe Jimenez for this kind referral. Calixto Sepulveda M.D. DR: Jono JOB#: [id number] CC: Monroe Jimenez M.D.; Fax#: [phone]
--- NOTE | 2018-05-17 17:06 | Discharge Instructions ---
Discharge Instructions Discharge Instructions Services at Discharge: day care Diet: 2 GM sodium (low sodium) Resume Normal Activity?: Yes Activity: light activity Follow Up Orders Patient to f/u 1 week GI F/U 1 week For Congestive Heart Failure Reminder Report to your physician any weight gain of 5 pounds or more in one week. Haseeb Owen MD May 17, 2018 17:06
--- NOTE | 2018-05-18 11:16 | Discharge Summary ---
Discharge Summary Discharge Summary _ DATE OF ADMISSION: 05/16/2018 DATE OF DISCHARGE: 05/17/2018 REASON FOR ADMISSION: 67 years old female presented to emergency room due to episodes of bright red blood stool. Patient was lightheaded, feeling weak and almost passed out. Patient with past medical history of hypertension, hyperlipidemia,lupus, hx of CVA. Patient was on aspirin and Plavix. She denied chest pain ,shortness of breath nausea, vomiting, diarrhea. Upon evaluation vital signs were stable ,slightly elevated blood pressure 157/ 92. Laboratory workup revealed no leukocytosis hemoglobin 8.8, hematocrit 27.2. Coagulation profile stable. Troponin negative. EKG revealed normal sinus hythm. Patient needs with diagnosis of hematochezia, anemia, presyncopal episode, hypertension. CONSULTANTS: GI specialist Dr. Sepulveda sternman/oncologist Dr. Hernandez [facility] COURSE: Patient admitted to telemetry floor . Patient kept nothing by mouth and started on the IV fluids. Aspirin and Plavix were hold. PPI started. GI specialist seen and evaluated the patient. Stool for occult blood was positive. Patient subsequently undergone EGD and colonoscopy with findings of severe atrophic gastritis, small hiatal hernia, significant diverticulosis without evidence of diverticulitis, one bleeding vessel in sigmoid , status post hemostasis. Bowel regimen instituted. Hematology seen and evaluated patient. Anemia workup was consistent with anemia of chronic disease with elevated ferritin of 1283. Patient also had anemia due to GI bleeding. Hemoglobin and hematocrit were closely monitored with goal to keep hemoglobin above 7. Patient admitted to being Jehovah witness, and would not accept blood transfusion. Prior to discharge hemoglobin 8.[address] of the head revealed no acute intracranial pathology , but showed multiple old lacunar infarcts. Blood pressure was stable with current regimen of calcium channel morro and ARB.. Fall precautions maintained . Patient was working with physical and occupational therapists. Bedside swallow evaluation revealed risk for aspiration. Diet provided as per speech therapist recommendation with strict aspiration/ reflux precaution. Patient had no further rectal bleeding after hemostasis . Patient was stable for discharge on home. Due to rapid and unexpected improvement in patient's condition patient was discharged in one day FINAL DIAGNOSES: Rectal bleeding/hematochezia Anemia of GI bleeding Syncopal episode Status post EGD and colonoscopy with one bleeding vessel in sigmoid status post hemostasis History of CVA with right hemiparesis Hypertension DISCHARGE MEDICATIONS: See Medication Reconciliation list. DISCHARGE INSTRUCTIONS: Patient was discharged home . Follow up with primary care provider in one week. I have been assigned to dictate discharge summary for this account. I was not involved in the patient's management. Emilee Britt NP May 18, 2018 11:16
--- NOTE | 2018-05-18 14:03 | General Progress Note ---
Assessment/Plan Status: stable Assessment/Plan # Anemia etiology yet unknown, normocytic, no evidence of hemolysis noted --> [employer], therefore will not accept transfusions --> have ordered for tsh, ferritin, tibc, esr, crp, retic count, consider further w/u as needed --> monitor if any fluids are given, hgb may decrease due to hemodilutional status --> closely monitor for improvement in next several days --> if hgb downtrends, consider to hold off on asa/palvix as will decrease function of platelets # Anemia of gi bleed - w/u as needed, consider occult blood --> gi eval if continues to persist --> protonix has been started # Syncope is related most likely due to anemia versus cardiac cause v others # CVA, old, hemiparesis Greatly appreciate consultation! Subjective Date patient seen: May 17, 2018 ROS Limited/Unobtainable: Yes Hematologic/Lymphatic: Reports: anemia Allergies: Coded Allergies: CODEINE (Verified Allergy, Unknown, DISORIENTED, 06/01/11) IBUPROFEN (Verified Allergy, Unknown, DISORIENTED, 06/01/11) LEVOFLOXACIN (Verified Allergy, Unknown, DISORIENTED, 06/01/11) Subjective No acute events. VS stable. DC planning. Objective Last 24 Hour Vital Signs Date Time Temp Pulse Resp B/P (MAP) Pulse Ox O2 Delivery O2 Flow Rate FiO2 05/17/18 17:43 133/60 05/17/18 16:00 98.7 68 19 133/60 (84) 96 98.7 05/17/18 16:00 67 Intake and Output 05/17/18 05/18/18 19:00 07:00 Intake Total 600 ml Balance 600 ml IV Total 600 ml Height (Feet): 5 Height (Inches): 5.00 Weight (Pounds): 161 General Appearance: no apparent distress EENT: PERRL/EOMI Neck: normal alignment Respiratory/Chest: no respiratory distress Buddy Hernandez MD May 18, 2018 14:03
== END 2018-05-17 17:56 | disposition home or self-care (01) | DRG 378 ==
LOC: EDBD 23:15 → EMR 23:37 → 2W 05-16 00:08 → EDBEDREQSVC 05-16 00:16 → EDBEDREQ 05-16 00:16 → EDBEDREQDT 05-16 00:16 → EDBEDREQTM 05-16 00:16 → EDBEDREQ 05-16 00:34 → 2E 05-16 09:23
PROC: 0W3P8ZZ Control Bleeding in Gastrointestinal Tract, Via Natural or Artificial Opening Endoscopic (ICD-10-PCS; principal; 2018-05-17 10:40)
PROC: 0DB68ZX Excision of Stomach, Via Natural or Artificial Opening Endoscopic, Diagnostic (ICD-10-PCS; principal; 2018-05-17 10:40)
DX: K29.41 Chronic atrophic gastritis with bleeding (principal); I69.351 Hemiplegia and hemiparesis following cerebral infarction affecting right dominant side; D50.0 Iron deficiency anemia secondary to blood loss (chronic); R55 Syncope and collapse; I10 Essential (primary) hypertension; Z79.02 Long term (current) use of antithrombotics/antiplatelets; Z79.82 Long term (current) use of aspirin; Z88.6 Allergy status to analgesic agent; Z88.1 Allergy status to other antibiotic agents; K29.70 Gastritis, unspecified, without bleeding; K57.90 Diverticulosis of intestine, part unspecified, without perforation or abscess without bleeding; K44.9 Diaphragmatic hernia without obstruction or gangrene; D63.8 Anemia in other chronic diseases classified elsewhere
CPT/HCPCS: 36415; 70450; 80048; 80053; 82270; 82728; 82746; 82962; 83540; 83550; 83615; 84443; 84484; 85007; 85025; 85044; 85060; 85384; 85610; 85730; 93005; 94003; 94150; 96365; 96375; 99285; J2250